=== PATIENT | female | born 2000 | race American Indian/Alaskan Native ===

== ENCOUNTER 2019-02-23 16:28 | Emergency (ER) | payer OTHER ==
[2019-02-23 20:18] LABS: HCG Qualitative,Urine Negative (Negative)
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
[2019-02-23 21:41] VITALS: BP 119/73
== END 2019-02-23 21:45 | disposition home or self-care (01) ==
LOC: ED 16:28
DX: M54.5 Low back pain (principal); M54.6 Pain in thoracic spine; F12.10 Cannabis abuse, uncomplicated; V87.7XXA Person injured in collision between other specified motor vehicles (traffic), initial encounter; Y93.89 Activity, other specified; Y92.488 Other paved roadways as the place of occurrence of the external cause; Y99.8 Other external cause status
CPT/HCPCS: 72072; 72100; 81025; 99283